=== PATIENT | female | born 2000 | race African-American/Black ===

== ENCOUNTER 2020-05-25 16:40 | Emergency (ER) | payer OTHER ==
[2020-05-25 16:55] VITALS: BP 119/48; PULSE 76; TEMP 98.7; BMI 21.0
[2020-05-25] MEDS ORDERED: SODIUM CHLORIDE 0.9% 500 ML INFUS.BAG IV ONE (17:08)
[2020-05-25] MEDS ORDERED: IBUPROFEN 600 MG TABLET (FP) PO ONE ×2 (17:24→17:35)
[2020-05-25 18:05] LABS: HEMATOCRIT 36.6 % (32.4-45.2); HEMOGLOBIN 11.5 GM/dL (10.7-15.3); LYMPH % 33.7 % (8-40); MCH 25.8 pg (25.7-33.7); MCHC 31.3 g/dl (32.0-36.0); MEAN CELL VOLUME 82.3 fl (80-96); MEAN PLT VOLUME 8.2 fl (7.5-11.1); MONO % 9.6 % (3.8-10.2); NEUT % 53.7 % (42.8-82.8); PLATELET COUNT 428 K/MM3 (134-434); RBC 4.44 M/mm3 (3.60-5.2); WHITE BLOOD COUNT 6.7 K/mm3 (4.0-10.0)
[2020-05-25 18:21] LABS: CHLORIDE 106 mmol/L (98-107); POTASSIUM 4.2 mmol/L (3.5-5.1); SODIUM 137 mmol/L (136-145)
[2020-05-25 18:24] LABS: EPI CELLS 19 /uL (0-25.1); HYALINE CASTS 2 /uL (0-3.1); URINE APPEARANCE CLEAR; URINE BACTERIA 223 /uL (0-1359); URINE BILIRUBIN NEGATIVE (NEGATIVE); URINE COLOR YELLOW; URINE GLUCOSE (UA) NEGATIVE (NEGATIVE); URINE KETONE TRACE (NEGATIVE); URINE LEUK ESTERASE NEGATIVE (NEGATIVE); URINE NITRITE NEGATIVE (NEGATIVE); URINE PROTEIN 1+ (NEGATIVE); URINE RBC 14 /uL (0-23.9); URINE WBC 2 /uL (0-25.8)
[2020-05-25 18:25] LABS: CALCIUM 9.5 mg/dL (8.5-10.1)
[2020-05-25 18:26] LABS: ALBUMIN 4.4 g/dl (3.4-5.0); ANION GAP 4 MMOL/L (8-16); CO2 27 mmol/L (21-32); GLUCOSE,RANDOM 69 mg/dL (74-106)
[2020-05-25 18:29] LABS: CREATININE 0.7 mg/dL (0.55-1.3); SGOT/AST 15 U/L (15-37); SGPT/ALT 11 U/L (13-61)
[2020-05-25 18:30] LABS: BILIRUBIN,TOTAL 0.7 mg/dL (0.2-1)
[2020-05-25 18:31] LABS: TOT PROT 8.2 g/dl (6.4-8.2)
[2020-05-25 18:32] LABS: ALK PHOS 60 U/L (45-117)
== END 2020-05-25 18:39 | disposition home or self-care (01) ==
LOC: JER 16:40
DX: N93.9 Abnormal uterine and vaginal bleeding, unspecified (principal)
CPT/HCPCS: 36415; 80053; 81003; 84702; 85025; 87086; 99283-25